=== PATIENT | female | born 1965 ===

== ENCOUNTER 2023-10-07 15:56 | Emergency (ER) | payer BC, SELFPAY ==
[2023-10-07 15:58] VITALS: BP 199/119
--- NOTE | 2023-10-07 16:04 | ED.PDOC.TRB ---
ED Provider Triage
-
Patient seen by provider in Triage?: Seen in Triage
58-year-old female presents for evaluation for flank pain. She was in [facility] last week and diagnosed with kidney stones. She was admitted to the hospital overnight. She was given a couple doses of antibiotics. There was significant language
barrier. She she had pain on both sides and is not sure which side she had the active kidney stone on. She denies nausea. Currently she is in no pain but has had intermittent discomfort since discharge. She does not think she passed any stones.
She is looking for more information. Due to language barrier and uncertainty of the situation, will repeat CT scan here and check urine and labs
[2023-10-07 16:21] LABS: % Basophils 1.2 % (0-2); % Eosinophils 5.5 % (0-6); % Immature Granulocytes 0.5 % (0-0.5); % Lymphocytes 12.6 % (20.5-51.1); % Monocytes 7.3 % (1.7-9.3); % Neutrophils 72.9 % (42.2-75.2); Absolute Basophils 0.1 10^3/uL (0-0.2); Absolute Eosinophils 0.3 10^3/uL (0-0.7); Absolute Lymphocytes 0.8 10^3/uL (1.2-3.4); Absolute Monocytes 0.4 10^3/uL (0.1-0.6); Absolute Neutrophils 4.4 10^3/uL (1.4-6.5); Hematocrit 35.7 % (37.0-47.0); Hemoglobin 11.8 g/dL (12.0-16.0); Mean Corp Hgb Conc. 33.1 g/dL (33.0-37.0); Mean Corpuscular Hgb 28.2 pg (27.0-31.0); Mean Corpuscular Volume 85.4 fL (81.0-99.0); Mean Platelet Volume 9.4 fL (7.4-10.4); Nucleated Red Blood Cells % 0 %; Platelet Count 280 10^3/uL (130-400); Red Blood Cell Count 4.18 10^6/uL (4.20-5.40); Red Cell Dist. Width 12.7 % (11.5-14.5); White Blood Cell Count 6.1 10^3/uL (4.8-10.8)
[2023-10-07 16:35] VITALS: BMI 23.5
[2023-10-07 16:41] LABS: ALT (SGPT) 24 U/L (0-35); AST (SGOT) 28 U/L (14-36); Albumin 4.4 g/dl (3.5-5.0); Alkaline Phosphatase 74 U/L (38-126); Blood Urea Nitrogen 23 mg/dl (7-17); Calcium 9.5 mg/dl (8.4-10.2); Carbon Dioxide 29 mmol/L (22-30); Chloride 102 mmol/L (98-107); Glucose 165 mg/dl (70-99); Potassium 3.8 mmol/L (3.5-5.1); Sodium 141 mmol/L (135-145); Total Bilirubin 1.4 mg/dl (0.2-1.3); Total Protein 7.5 g/dl (6.3-8.2); eGFR 43.07
--- NOTE | 2023-10-07 16:47 | ED.GENMED ---
History of Present Illness
General
Chief Complaint: Flank Pain
Time Seen by Provider: 10/07/23 16:32
History of Present Illness
History of Present Illness:
58-year-old female with history of hypertension presents to the emergency department for evaluation of left flank pain. [place] last [place] and developed left flank pain, was seen in a hospital locally) to, at which time she was
diagnosed with a 7 mm left ureteral stone with hydronephrosis. She was discharged on ciprofloxacin as well as anti-inflammatories. She states pain is improved but she is concerned that the pain has persisted through today. No fevers or chills.
Did have large amount of hematuria this morning
Review of Systems
Review of Systems
Allergies reviewed?: Yes
All Other Systems: ROS reviewed and negative except as documented in HPI and ROS
Phy Exam
Physical Exam
Physical Exam:
GEN: Well appearing, NAD, WDWN
HEENT: Oral mucosa moist, no scleral icterus
Cardiac: Regular rate
Lung: No respiratory distress, no tachypnea
MSK: No gross deformity or injuries
Skin: Good color, no pallor or jaundice, no rashes
Neuro: AO x3, moves all extremities freely
Psych: Calm, cooperative
Course
Orders/Labs/Results
Orders:
Orders
10/07/23 16:03
CT Abd/pel Without Iv Or Oral Urgent
Comment:
Reason For Exam: left flank pain
10/07/23 16:13
Complete Blood Count/With Diff Urgent
Comprehensive Metabolic Panel Urgent
10/07/23 16:38
Urinalysis Reflex To Culture Urgent
Date Specimen was Collected: 10/07/23
Time Specimen was Collected: 16:34
Urine Microscopic Reflex Cult Urgent
Abnormal Lab Results
10/07/23 10/07/23
16:13 16:38
RBC 4.18 L 10^6/uL
(4.20-5.40)
Hgb 11.8 L g/dL
(12.0-16.0)
Hct 35.7 L %
(37.0-47.0)
Absolute Lymphs (auto) 0.8 L 10^3/uL
(1.2-3.4)
Lymphocytes % 12.6 L %
(20.5-51.1)
BUN 23 H mg/dl
(7-17)
Creatinine 1.4 H mg/dL
(0.6-1.0)
Glucose 165 H mg/dl
(70-99)
Total Bilirubin 1.4 H mg/dl
(0.2-1.3)
Urine Ketones Trace A
(Negative)
Ur Occult Blood Reflex 4+ A
(Negative)
Urine RBC >100 A /HPF
(0-2)
Urine Bacteria (Reflex) Few A
(Negative)
Urine Glucose 1+ A
(Negative)
10/07/23 16:13
10/07/23 16:13
Vital Signs
Initial and Last Documented VS:
Initial Vital Signs
Temp Pulse Resp BP Pulse Ox
98.2 F 104 18 199/119 97
10/07/23 15:58 10/07/23 15:58 10/07/23 15:58 10/07/23 15:58 10/07/23 15:58
Last Documented Vital Signs
Temp Pulse Resp BP Pulse Ox
98.2 F 104 18 199/119 97
10/07/23 15:58 10/07/23 15:58 10/07/23 15:58 10/07/23 15:58 10/07/23 15:58
MDM/Problems Addressed
MDM/Problems Addressed:
Repeat CT scan done here shows no evidence for active stone however hydronephrosis is indicative of recently passed stone. Her labs are reassuring. I have recommended she continue ciprofloxacin. In regards to her hypertension She was previously
on amlodipine and is interested in restarting this, I feel this is reasonable as it was not medically recommended that she discontinue medications.
*Critical Care Note
Total Time (30-74mins, 75-104mins- exclusive of procedures): Not Applicable
ED Attending Note
-
Portions of this chart may have been created with voice recognition software.� Occasional wrong word or��sound alike� substitutions may have occurred due to the inherent limitations of voice recognition software.
Discharge Plan
Departure
Patient Disposition: Home (Routine Discharge)
Date of Disposition: 10/07/23
Time of Disposition: 18:36
Patient with high blood pressure during this ER visit?: Yes
Discharge Problem:
Left flank pain
Instructions: Kidney Stones (DC)
Prescriptions:
New
amlodipine 5 mg tablet
5 mg PO DAILY Qty: 30 0RF
Referrals:
NONE,* [Family Provider] -
Activity Restrictions/Additional Instructions:
Continue the ciprofloxacin given to you in [facility]
You may stop all other meds
PLEASE SEE YOUR PRIMARY DOCTOR REGARDING YOUR BLOOD PRESSURE
Interventions
Interventions:
*Risk Screen - Suicide Last Done: 10/07/23 16:35
*General Assessment Last Done: 10/07/23 16:35
*Neglect/Abuse Screening Last Done: 10/07/23 16:35
ED- Fall Risk Assessment Last Done: 10/07/23 16:35
*ED COVID-19 Vaccine History Last Done: 10/07/23 16:35
*Nursing Disposition Last Done: 10/07/23 18:53
GR-Pzinar-Okrtmvuiyg Assessment Last Done: 10/07/23 16:35
ED-Female Genitourinary Assessment Last Done: 10/07/23 16:35
Discharge Date and Time
Discharge Date/Time: 10/07/23 18:53
Print Language: WELSH
[2023-10-07 17:19] LABS: Urine Albumin Trace (Neg - Trace); Urine Bilirubin Negative (Negative); Urine Character Clear (Clear); Urine Color Yellow; Urine Glucose 1+ (Negative); Urine Ketone Trace (Negative); Urine Leukocyte Negative (Negative); Urine Nitrite Negative (Negative); Urine Occult Blood 4+ (Negative); Urine Urobilinogen Negative (Neg - 1+)
[2023-10-07 18:11] LABS: Urine Calcium Oxalate Crystals Present; Urine Granular Cast 0-2 /LPF (0); Urine Hyaline Cast 0-2 /LPF (0-2)
[2023-10-07 18:12] LABS: Urine Bacteria Few (Negative); Urine Red Blood Cell >100 /HPF (0-2); Urine White Cell 0-2 /HPF (0-5)
== END 2023-10-07 18:53 | disposition home or self-care (01) ==
LOC: EMR 15:56
PROVIDERS: Physician Assistant; EMERGENCY PHYSICIAN Emergency Medicine
DX: R10.9 Unspecified abdominal pain (principal); R31.9 Hematuria, unspecified; N13.30 Unspecified hydronephrosis; R03.0 Elevated blood-pressure reading, without diagnosis of hypertension; I10 Essential (primary) hypertension
CPT/HCPCS: 99284; 74176; 80053; 81003; 81015; 85025